=== PATIENT | male | born 1975 | race Caucasian/White ===

== ENCOUNTER 2021-02-25 08:24 | Emergency (ER) | payer OTHER ==
--- NOTE | 2021-02-25 08:55 | ER ---
Nurse's Notes [facility] Name: Sean Foote Age: 46 yrs Sex: Male : 1975 Arrival Date: 02/25/2021 Time: 08:31 Bed 9 Private MD: Diagnosis: Unspecified otitis externa, right ear Presentation: 02/25 08:41 Chief complaint: Patient states: Right ear pain x5 days, prescribed Amoxicillin x 4 jl7 days, drops x 1 day, severe pain continues with swelling noted to ear. Coronavirus screen: At this time, the client does not indicate any symptoms associated with coronavirus-19. Ebola Screen: No symptoms or risks identified at this time. Initial Sepsis Screen: Does the patient meet any 2 criteria? No. Patient's initial sepsis screen is negative. Does the patient have a suspected source of infection? No. Patient's initial sepsis screen is negative. Risk Assessment: Do you want to hurt yourself or someone else? Patient reports no desire to harm self or others. Onset of symptoms was February 21, 2021. 08:41 Method Of Arrival: Ambulatory jl7 08:41 Acuity: MIGUEL 4 jl7 Triage Assessment: 08:44 General: Appears in no apparent distress. uncomfortable, Behavior is calm, cooperative, jl7 appropriate for age. Pain: Complains of pain in right ear. EENT: Tympanic membrane not visualized right ear Ear canal swelling noted. Neuro: Level of Consciousness is awake, alert, obeys commands, Oriented to person, place, time, situation. Cardiovascular: Patient's skin is warm and dry. Respiratory: Airway is patent Respiratory effort is even, unlabored, Respiratory pattern is regular, symmetrical. Derm: Skin is pink, warm \T\ dry. Historical: - Allergies: 08:44 No Known Allergies; jl7 - PMHx: 08:44 Hypertensive disorder; jl7 - PSHx: 08:44 Appendectomy; Cholecystectomy; jl7 - Immunization history:: Adult Immunizations unknown. - Social history:: Smoking status: unknown. Screenin:45 Abuse screen: Denies threats or abuse. Denies injuries from another. Nutritional jl7 screening: No deficits noted. Tuberculosis screening: No symptoms or risk factors identified. Fall Risk None identified. Assessment: 08:45 General: see triage. jl7 Vital Signs: 08:41 BP 134 / 88; Pulse 92; Resp 17; Temp 97.4; Pulse Ox 98% on R/A; Weight 90.72 kg; Height jl7 5 ft. 10 in. (177.80 cm); Pain 9/10; 08:41 Body Mass Index 28.70 (90.72 kg, 177.80 cm) jl7 ED Course: 08:31 Patient arrived in ED. mr 08:34 Aydin Fisher, RN is Primary Nurse. jl7 08:36 Cristobal Crawford NP is PHCP. pm1 08:36 Gunjan Hoover MD is Attending Physician. pm1 08:44 Triage completed. jl7 08:44 Arm band placed on right wrist. jl7 08:45 Patient has correct armband on for positive identification. Bed in low position. Call jl7 light in reach. Side rails up X 1. 08:54 Maria D Martinez MD is Referral Physician. pm1 09:06 No provider procedures requiring assistance completed. Patient did not have IV access ld1 during this emergency room visit. Administered Medications: No medications were administered Outcome: 08:54 Discharge ordered by . pm1 09:07 Discharged to home ambulatory. ld1 09:07 Condition: stable 09:07 Discharge instructions given to patient, Instructed on discharge instructions, follow up and referral plans. medication usage, Demonstrated understanding of instructions, follow-up care, medications, Prescriptions given X 2. 09:07 Patient left the ED. ld1 Signatures: Rina Hitchcock mr Cristobal Crawford, EDMUND [employer] pm1 Aydin Fisher RN RN jl7 Krys Chin RN RN ld1
--- NOTE | 2021-02-25 08:55 | EDPHYS ---
Physician Documentation [facility] Name: Sean Foote Age: 46 yrs Sex: Male : 1975 Arrival Date: 02/25/2021 Time: 08:31 Bed 9 Private MD: ED Physician Gunjan Hoover HPI: 02/25 08:52 This 46 yrs old Male presents to ER via Ambulatory with complaints of Ear pm1 Pain. 08:52 The patient presents with pain, that is acute. The complaints affect the right ear. pm1 Onset: The symptoms/episode began/occurred 5 day(s) ago. Modifying factors: the symptoms are aggravated by 2 days prior to onset of ear pain, patient reports getting water from shower stuck in his right ear. Associated signs and symptoms: Pertinent negatives: fever. Severity of symptoms: in the emergency department the symptoms are worse. The patient has experienced similar episodes in the past, a few times, as a child. The patient has been recently seen at an urgent care, for similar complaints, Diagnosed with otitis media 4 days ago and prescribed Augmentin and then followed up with them yesterday and prescribed Ciprodex drops. Reports provider was unable to visualize TM yesterday. No ear wick given with ciprodex. Historical: - Allergies: 08:44 No Known Allergies; jl7 - PMHx: 08:44 Hypertensive disorder; jl7 - PSHx: 08:44 Appendectomy; Cholecystectomy; jl7 - Immunization history:: Adult Immunizations unknown. - Social history:: Smoking status: unknown. ROS: 08:52 Constitutional: Negative for fever, chills, and weight loss. pm1 08:52 Cardiovascular: Negative for chest pain, palpitations, and edema, Respiratory: Negative for shortness of breath, cough, wheezing, and pleuritic chest pain, Skin: Negative for injury, rash, and discoloration, Neuro: Negative for headache, weakness, numbness, tingling, and seizure. 08:52 ENT: Positive for ear pain, Negative for sore throat. 08:52 All other systems are negative. Exam: 08:52 Constitutional: This is a well developed, well nourished patient who is awake, alert, pm1 and in no acute distress. Head/Face: Normocephalic, atraumatic. 08:52 Skin: Warm, dry with normal turgor. Normal color with no rashes, no lesions, and no evidence of cellulitis. MS/ Extremity: Pulses equal, no cyanosis. Neurovascular intact. Full, normal range of motion. 08:52 Eyes: Exam is negative for acute changes, Extraocular movements: no acute changes, Sclera: no acute changes, icterus, is not appreciated. 08:52 ENT: External ear(s): swelling, that is minimal, of the pinna of right ear and right ear canal, Ear canal(s): swelling, that is moderate, of the right canal, TM's: not visable, swelling from right otitis externa, no discharge present. 08:52 Cardiovascular: Exam negative for acute changes, Rate: normal, Rhythm: regular, Pulses: no pulse deficits are appreciated. 08:52 Respiratory: Exam negative for acute changes, respiratory distress, shortness of breath. 08:52 Neuro: Exam negative for acute changes, Orientation: is normal, Mentation: is normal, Motor: is normal, moves all fours, Gait: is steady, at a normal pace, without difficulty. Vital Signs: 08:41 BP 134 / 88; Pulse 92; Resp 17; Temp 97.4; Pulse Ox 98% on R/A; Weight 90.72 kg; Height jl7 5 ft. 10 in. (177.80 cm); Pain 9/10; 08:41 Body Mass Index 28.70 (90.72 kg, 177.80 cm) jl7 MDM: 08:37 Patient medically screened. pm1 08:52 ED course: Ear wick placed in right ear for right otitis externa. pm1 08:53 Data reviewed: vital signs. Data interpreted: Pulse oximetry: on room air is 98 %. pm1 Interpretation: normal. 08:53 Counseling: I had a detailed discussion with the patient and/or guardian regarding: the pm1 historical points, exam findings, and any diagnostic results supporting the discharge/admit diagnosis, the need for outpatient follow up, an ENT specialist, to return to the emergency department if symptoms worsen or persist or if there are any questions or concerns that arise at home. 09:06 ED course: PMPAware reviewed. pm1 Administered Medications: No medications were administered Disposition Summary: 02/25/21 08:54 Discharge Ordered Location: Home pm1 Problem: new pm1 Symptoms: have improved pm1 Condition: Stable pm1 Diagnosis - Unspecified otitis externa, right ear pm1 Followup: pm1 - With: Emergency Department - When: As needed - Reason: Worsening of condition Followup: pm1 - With: Maria D Martinez MD - When: 2 - 3 days - Reason: Recheck today's complaints, Continuance of care, Re-evaluation by your physician Discharge Instructions: - Discharge Summary Sheet pm1 - Ear Drops, Adult pm1 - Otitis Externa pm1 Forms: - Medication Reconciliation Form pm1 - Thank You Letter pm1 - Antibiotic Education pm1 - Prescription Opioid Use pm1 Prescriptions: - Neomycin / polymyxin b / hydrocortisone otic suspension - apply 4 drop by OTIC route every 6 hours for 10 days To right ear; 10 pm1 milliliter; Refills: 0, Product Selection Permitted - acetaminophen-codeine 300-15 mg Oral tablet - take 2 tablet by ORAL route every 6 hours As needed as needed; 20 tablet; pm1 Refills: 0, Product Selection Permitted Addendum: 03/06/2021 05:23 Co-signature as Attending Physician, Gunjan Hoover MD PA/[employer]'s history reviewed, m a2 patient interviewed, and examined. I agree with assessment and care plan and confirm the diagnosis (es) above. Signatures: Cristobal Crawford NP [employer] pm1 Aydin Fisher RN RN jl7 Gunjan Hoover MD MD ma2
[2021-02-25 09:21] VITALS: BP 134/88; TEMP 97.4; O2SAT 98
--- OUTSIDE RECORDS SUMMARY | 2021-03-04 14:04 | XMS REPORT | Continuity of Care Document ---
:1975 Author Organization [facility] t Address [address] [place] [address] Dr. Sutherland [address] [place] [id number] Care Team Providers Name Role Phone Unavailable Unavailable Unavailable Problems This patient has no known problems. Allergies, Adverse Reactions, Alerts This patient has no known allergies or adverse reactions. Medications This patient has no known medications. Procedures This patient has no known procedures. Results This patient has no known results.
== END 2021-02-25 09:07 | disposition home or self-care (01) ==
LOC: ER 08:24
DX: H60.91 Unspecified otitis externa, right ear (principal); I10 Essential (primary) hypertension
CPT/HCPCS: 99282

== ENCOUNTER 2024-11-28 10:46 | Emergency (ER) | payer OTHER ==
--- OUTSIDE RECORDS SUMMARY | 2024-11-28 10:49 | XMS REPORT | Continuity of Care Document ---
Author Name Unknown Address [address] [place] [address] Organization [facility] Address [address] [place] [address] Care Team Providers Care Standard Machine Stitcher Name Role Phone Pcp, Patient Does Not Have A Primary Care Physic alvaro System, Amb Referring Provider Not In Attending Clinician Unavailable Tara Attending Clinician Unavail able Sravan Multani Attending Clinician Unavailab le Tara Admitting Clinician Unavail able KNOW, DOES_NOT Admitting Clinician Unavailable Payers Payer Name Policy Type Policy Number Effective Date Expirati on Date Source [employer] - CHOICE (POS II) [id number] 2004 00:00:00 Problems Condition Name Condition Details Condition Category Status Onset Date Resolution Date Last Treatment Date Treating Clinician Comments Source Lumbar radiculopa thy Lumbar Radiculopa thy Problem Active 05-31 00:00: 00 [facility] Allergies, Adverse Reactions, Alerts Allergy Name Allergy Type Status Severity Reaction(s) Onset Date Inactive Date Treating Clinician Comments Source No Known Allergie s DA Active U 05-31 00:00: 00 [facility] Social History Social Habit Start Date Stop Date Quantity Comments Source Sexual orientation U [facility] Sex assigned at 1975 00:00:00 1975 00:00:00 [facility] Smoking Status Start Date Stop Date Source Tobacco smoking consumption unknown [facility] Former Smoker [facility] Medications Ordered Medication Name Filled Medication Name Start Date Stop Date Current Medication? Ordering Clinician Indication Dosage Frequency Signature (SIG) Comments Components Source methylpredn isolone 4 mg tablets in a dose pack TAKE 6 TABLETS ON DAY 1 DIRECTED ON PACKAGE AND DECREASE BY 1 TAB EACH DAY FOR A TOTAL OF 6 DAYS methylpredn isolone 4 mg tablets in a dose pack TAKE 6 TABLETS ON DAY 1 DIRECTED ON PACKAGE AND DECREASE BY 1 TAB EACH DAY FOR A TOTAL OF 6 DAYS No methylpred nisolone 4 mg tablets in a dose pack TAKE 6 TABLETS ON DAY 1 DIRECTED ON PACKAGE AND DECREASE BY 1 TAB EACH DAY FOR A TOTAL OF 6 DAYS [facility] olmesartan 20 mg-hydrochl orothiazide 12.5 mg tablet TAKE 1 TABLET BY MOUTH EVERY DAY olmesartan 20 mg-hydrochl orothiazide 12.5 mg tablet TAKE 1 TABLET BY MOUTH EVERY DAY No olmesartan 20 mg-hydroch lorothiazi de 12.5 mg tablet TAKE 1 TABLET BY MOUTH EVERY DAY [facility] prednisone 20 mg tablet prednisone 20 mg tablet No prednisone 20 mg tablet [facility] Medrol (Don) 4 mg tablets in a dose pack Take 1 dose pk by oral route as directed. Medrol (Don) 4 mg tablets in a dose pack Take 1 dose pk by oral route as directed. No 1dose pk(s) Medrol (Don) 4 mg tablets in a dose pack Take 1 dose pk by oral route as directed. [facility] olmesartan 20 mg-hydrochl orothiazide 12.5 mg tablet TAKE 1 TABLET BY MOUTH EVERY DAY olmesartan 20 mg-hydrochl orothiazide 12.5 mg tablet TAKE 1 TABLET BY MOUTH EVERY DAY No olmesartan 20 mg-hydroch lorothiazi de 12.5 mg tablet TAKE 1 TABLET BY MOUTH EVERY DAY [facility] prednisone 20 mg tablet prednisone 20 mg tablet No prednisone 20 mg tablet [facility] Vital Signs Vital Name Observation Time Observation Value Comments S ource Height 2022-05-31 00:00:00 70 [in_i] [facility] BMI (Body Mass Index) 2022-05-31 00:00:00 30.1 kg/m2 [facility] Body Weight 2022-05-31 00:00:00 210 [lb_av] A[facility] Height 2022-05-24 00:00:00 70 [in_i] [facility] BMI (Body Mass Index) 2022-05-24 00:00:00 30.1 kg/m2 [facility] Body Weight 2022-05-24 00:00:00 210 [lb_av] [facility] Procedures Procedure Date / Time Performed Performing Clinician Source SPECT, lumbar spine 2022-05-31 00:00:00 [facility] RADEX SPI LUMBOSAC MINIMUM 4 VIEWS 2022-05-24 00:00:00 [facility] MRI, lumbar spine, w/wo contrast 2022-05-24 00:00:00 [facility] Ankle Surgery [facility] Appendectomy [facility] Back Surgery [facility] Gallbladder Surgery [facility] Plan of Care Planned Activity Planned Date Details Comments Source Instructions [facility] Encounters Start Date/Time End Date/Time Encounter Type Admission Type Attending Clinicians Care Facility Care Department Encounter ID Source 2024-10-28 00:00:00 2024-10-28 08:45:55 Letter (Out) System, Amb Referring Provider Not In [facility] [id number] [facility] 2022-05-31 09:09:00 2022-05-31 09:09:00 Outpatient Sravan Salguero [facility] [id number] [facility] 2022-05-31 00:00:00 2022-05-31 00:00:00 Sravan Multani MD: [address] [place] [address] , Ph. [phone] [place] [facility] [place] [facility] [id number] [facility] 2022-05-24 00:00:00 2022-05-24 00:00:00 Sravan Multani MD: [address] [place] [address] , Ph. [phone] [facility] [place] [facility] [place] [facility] [address] [id number] [facility] Results Test Description Test Time Test Comments Results Resul t Comments Source - MRI L-SPINE W WO CON 2022-05-31 13:32:00 [facility] 1975 Sex: M Patient Name: SUMMER FOOTE Unit No: [id number] EXAMS: CPT CODE: [id number] MRI L-SPINE W WO CON [id number] DIAGNOSIS: 1. At L1-2 there is no evidence for disc bulge or herniation, bony canal or foraminal stenosis. 2. At L2-3 there is no evidence for disc bulge or herniation, bony canal or foraminal stenosis. 3. At L3-4 there is a slight retrolisthesis and disc bulging with mild left and mild to moderate right foraminal narrowing. Mild canal stenosis is seen with facet degeneration. 4. At L4-5 there is mild retrolisthesis and endplate spur formation with disc bulging which is lateralizing 3 mm into the right neural foramen. Moderate to marked bilateral foraminal narrowing is present right worse than left. A left-sided laminectomy is seen with decompression of the canal. Facet degeneration is present. 5. At L5-S1 there is a grade 1 retrolisthesis. A 5 mm right posterior lateral disc herniation with caudal extrusion is noted and there is also a 6 mm extruded disc fragment posterior to the herniation. There is compression and displacement of the right S1 nerve root and to a lesser degree the thecal sac. Facet degeneration is present without canal stenosis. Marked left and moderate right foraminal narrowing is seen with impingement on the left L5 multiple areas of focal fatty marrow infiltration are seen in the sacrum and posterior iliac wings. 6. At T12-L1 there is 4 mm of right paracentral, posterior lateral and foraminal disc herniation with moderate to marked narrowing of the right neural foramen and possible impingement on the cauda equina. If further evaluation is clinically indicated MRI of the thoracic spine is recommended. COMMENT: COMPARISON: No prior exams available. Scans were performed in the sagittal and axial planes utilizing T1, T2 and inversion recovery images precontrast and T1-weighted images postcontrast. Endplate and disc degeneration is seen from L3 to S1. Postsurgical changes as noted. Abnormal enhancement is seen in annular fissuring from L3 to S1. There is a scoliosis convex left. Disc configurations are as described. Spondylitic changes are as noted. The conus is in the expected location. The description these findings assumes a normal count of 5 lumbar type vertebra. at 1332 Reported and signed by: Margarito Peraza MD CC: Technologist: Romeo Luque(R) Transcribed D/ (1332) [facility] NAME: SUMMER FOOTE [id number] PHYS: JOSEFINA - Sravan Multani : 1975 AGE: 47 SEX: M [place], [place] [address] LOC: Y.RAD PHONE #: [phone] EXAM DATE: 05/31/2022 STATUS: REG CLI FAX #: [phone] RAD #: D/C DT PAGE 1 Signed Report Patient Name: SUMMER FOOTE Unit No: [id number] EXAMS: CPT CODE: [id number] MRI L-SPINE W WO CON [id number] (Continued) Orig Print D/T: S: 05/31/2022 (1335) [facility] NAME: SUMMER FOOTE [address] PHYS: [email or web address] - Sravan Multani : 1975 AGE: 47 SEX: M [place], [place] [address] LOC: WAYNE PHONE #: [phone] EXAM DATE: 05/31/2022 STATUS: SOTO FLORES FAX #: [phone] RAD #: D/C DT PAGE 2 Signed Report
--- NOTE | 2024-11-28 11:35 | ER ---
Nurse's Notes [facility] Name: Sean Foote Age: 49 yrs Sex: Male : 1975 Arrival Date: 11/28/2024 Time: 10:46 Bed 12 Private MD: Diagnosis: Displaced fracture of base of fifth metacarpal bone, right hand Presentation: 11/28 10:54 Chief complaint: Patient states: tried to catch a foul ball, deformity to right pinky jl7 finger with laceration. 10:54 Method Of Arrival: Ambulatory jl7 10:54 Coronavirus screen: At this time, the client does not indicate any symptoms associated jl7 with coronavirus-19. Ebola Screen: No symptoms or risks identified at this time. Initial Sepsis Screen: Does the patient meet any 2 criteria? No. Patient's initial sepsis screen is negative. Does the patient have a suspected source of infection? No. Patient's initial sepsis screen is negative. Risk Assessment: Do you want to hurt yourself or someone else? Patient reports no desire to harm self or others. Onset of symptoms was November 28, 2024. 10:54 Acuity: MIGUEL 4 jl7 Triage Assessment: 11:17 General: Appears in no apparent distress. uncomfortable, Behavior is calm, cooperative, jl7 appropriate for age. Pain: Complains of pain in right hand Pain currently is 10 out of 10 on a pain scale. Musculoskeletal: Bony deformity noted of right little finger. Injury Description: Laceration sustained to right little finger. Historical: - Allergies: 11:17 No Known Allergies; jl7 - PMHx: 11:17 Hypertensive disorder; jl7 - PSHx: 11:17 Appendectomy; Cholecystectomy; jl7 - Immunization history:: Adult Immunizations not up to date. - Infectious Disease History:: Denies. - Social history:: Smoking status: Patient denies any tobacco usage or history of. Screenin:[address] [facility] ED Fall Risk Assessment (Adult) History of falling in the last 3 months, jl7 including since admission No falls in past 3 months (0 pts) Confusion or Disorientation No (0 pts) Intoxicated or Sedated No (0 pts) Impaired Gait No (0 pts) Mobility Assist Device Used No (0 pt) Altered Elimination No (0 pt) Score/Fall Risk Level 0 - 2 = Low Risk Oriented to surroundings, Maintained a safe environment. Abuse screen: Denies threats or abuse. Denies injuries from another. Nutritional screening: No deficits noted. Tuberculosis screening: No symptoms or risk factors identified. Assessment: 10:54 General: Appears in no apparent distress. uncomfortable, Behavior is cooperative, jl7 appropriate for age, anxious. Pain: Complains of pain in right little finger Pain currently is 10 out of 10 on a pain scale. Neuro: Servin Agitation-Sedation Scale (RASS): +1 Restless Level of Consciousness is awake, alert, obeys commands, Oriented to person, place, time, situation. Cardiovascular: Patient's skin is warm and dry. Respiratory: Airway is patent Respiratory effort is even, unlabored, Respiratory pattern is regular, symmetrical. Derm: Skin is pink, warm \T\ dry. Musculoskeletal: Bony deformity noted of right little finger. Injury Description: Laceration sustained to right little finger is 0.5 to 2.5 cm long. Vital Signs: 10:54 BP 130 / 90; Pulse 110; Resp 17; Temp 97; Pulse Ox 97% ; Pain 10/10; jl7 11:51 Weight 95.25 kg; Height 5 ft. 10 in. ; jl7 11:51 BP 137 / 86; Pulse 101; Resp 15; Pulse Ox 96% ; Pain 2/10; kb4 15:07 BP 124 / 86; Pulse 79; Resp 15; Pulse Ox 100% ; jl7 11:51 Body Mass Index 30.13 (95.25 kg, 177.8 cm) jl7 10:54 Pain Scale: Adult jl7 11:51 Pain Scale: Adult kb4 ED Course: 10:49 Patient arrived in ED. cj3 10:58 Rodolfo Mancia FNP-C is PHCP. dr5 10:58 Sherly Malagon is Attending Physician. dr5 11:12 Aydin Fisher, [place] is Primary Nurse. jl7 11:16 Triage completed. jl7 11:17 Hand Right 3 View XRAY In Process Unspecified. EDMS 11:17 Arm band placed on right wrist. jl7 11:40 Patient has correct armband on for positive identification. Provided Education on: jl7 transfer. 11:41 Romulo tape right hand. Wound care: to laceration located on right hand was cleaned with jl7 Hibiclens, Patient tolerated well. 11:47 Inserted saline lock: 20 gauge in left upper arm, using aseptic technique. Blood kb4 collected. Flushed with 10 mL NS. 12:29 1229 called [facility] for transfer talked to Meena 1244 Dr. Terrell Zarate doc sp to doc to follow out pt in office. 13:08 1308 CALL [facility] FOR TRANSFER DR. TUCKER ZARATE WANTS PT TO sp FOLLOW UP IN OFFICE ON SATURDAY [phone]. 14:45 Orthoglass splint: Ulnar gutter/Boxer splint applied on right forearm. jl7 15:16 No provider procedures requiring assistance completed. IV discontinued, intact, jl7 bleeding controlled, No redness/swelling at site. Pressure dressing applied. Administered Medications: 10:50 Drug: Lidocaine Infiltration (1 %) 20 ml 20 ml Infiltration once; to bedside {Note: jl7 administered by ERP.} Volume: 20 ml; Route: Infiltration; 11:57 Drug: Boostrix Tdap IM 0.5 ml IM once; as a single dose Route: IM; Site: left deltoid; jl7 15:06 Follow up: Response: No adverse reaction jl7 11:57 Drug: ceFAZolin IVPB 2 grams IVPB once over 30 mins; (mix in 100 mL NS) Route: IVPB; jl7 Infused Over: 30 mins; Site: left upper arm; 12:30 Follow up: Response: No adverse reaction; IV Status: Completed infusion jl7 Medication: 10:54 Vaccine Information Statement (VIS) provided today. Questions and/or concerns jl7 addressed. VIS edition date: November 25, 2020. Outcome: 11:34 ER care complete, transfer ordered by . dr5 14:40 Discharge ordered by . dr5 15:15 Discharged to home ambulatory, with family, jl7 15:15 Condition: stable 15:15 Discharge instructions given to patient, family, Instructed on discharge instructions, follow up and referral plans. medication usage, Demonstrated understanding of instructions, follow-up care, medications, splint care, Prescriptions given X 3, 15:16 Patient left the ED. jl7 Signatures: Dispatcher [employer] EDMS Yolanda Su Jahala, RN RN jl7 Rodolfo Mancia, TREASURY CONSULTANT-C TREASURY CONSULTANT-Cdr5 Kady Mckeon RN RN kb4 Jaqui Bui cj3 Corrections: (The following items were deleted from the chart) 14:44 13:26 1229 called [facility] for transfer talked to Meena 1244 Dr. Terrell Zarate doc to doc to follow out pt in office. sp
--- NOTE | 2024-11-28 11:35 | EDPHYS ---
Physician Documentation [facility] Name: Sean Foote Age: 49 yrs Sex: Male : 1975 Arrival Date: 11/28/2024 Time: 10:46 Bed 12 Private MD: ED Physician Sherly Malagon HPI: 11/28 11:34 This 49 yrs old Male presents to ER via Ambulatory with complaints of Finger dr5 Injury - RT. 11:34 Patient is a 49-year-old male with history of hypertension coming in with pain to right dr5 fifth digit after getting hit by a softball in between 4th and 5th digits. Patient presents with laceration in between 4th and 5th digits, obvious dislocation to right fifth digit with finger at 90 degrees laterally and numbness and tingling to the right finger. Patient is right-hand dominant. Historical: - Allergies: 11:17 No Known Allergies; jl7 - PMHx: 11:17 Hypertensive disorder; jl7 - PSHx: 11:17 Appendectomy; Cholecystectomy; jl7 - Immunization history:: Adult Immunizations not up to date. - Infectious Disease History:: Denies. - Social history:: Smoking status: Patient denies any tobacco usage or history of. ROS: 11:34 Constitutional: as per hpi dr5 Exam: 11:31 Constitutional: This is a well developed, well nourished patient who is awake, alert, dr5 and in no acute distress. Head/Face: Normocephalic, atraumatic. Eyes: Pupils equal round and reactive to light, extra-ocular motions intact. Lids and lashes normal. Conjunctiva and sclera are non-icteric and not injected. Cornea within normal limits. Periorbital areas with no swelling, redness, or edema. Neck: Trachea midline, no thyromegaly or masses palpated, and no cervical lymphadenopathy. Supple, full range of motion without nuchal rigidity, or vertebral point tenderness. No Meningismus. Chest/axilla: Normal chest wall appearance and motion. Nontender with no deformity. No lesions are appreciated. Cardiovascular: Regular rate and rhythm with a normal S1 and S2. Normal PMI, no JVD. No pulse deficits. Respiratory: Lungs have equal breath sounds bilaterally, clear to auscultation. No rales, rhonchi or wheezes noted. No increased work of breathing, no retractions or nasal flaring. Back: No spinal tenderness. No costovertebral tenderness. Full range of motion. Skin: Warm, dry with normal turgor. Normal color with no rashes, no lesions, and no evidence of cellulitis. Laceration noted in between 4th and 5th digit. Neuro: Awake and alert, GCS 15, oriented to person, place, time, and situation. Cranial nerves II-XII grossly intact. Motor strength 5/5 in all extremities. Sensory grossly intact. Cerebellar exam normal. Normal gait. 11:31 Musculoskeletal/extremity: Extremities: grossly normal except: noted in the dorsal aspect of proximal phalanx of right little finger: swelling, tenderness, ROM: the patient is contracted, Circulation is intact in all extremities. Sensation intact. Tendon exam: postive for partial tendon laceration right little finger, Vital Signs: 10:54 BP 130 / 90; Pulse 110; Resp 17; Temp 97; Pulse Ox 97% ; Pain 10/10; jl7 11:51 Weight 95.25 kg; Height 5 ft. 10 in. ; jl7 11:51 BP 137 / 86; Pulse 101; Resp 15; Pulse Ox 96% ; Pain 2/10; kb4 15:07 BP 124 / 86; Pulse 79; Resp 15; Pulse Ox 100% ; jl7 11:51 Body Mass Index 30.13 (95.25 kg, 177.8 cm) jl7 10:54 Pain Scale: Adult jl7 11:51 Pain Scale: Adult kb4 Procedures: 17:28 Reduction: of the right little finger, using manipulation, Immobilized with Sugar Tong dr5 Splint. Patient tolerated well. Nerve block: (digital) of dorsal aspect of proximal phalanx of right little finger Medication: Lidocaine 1% without epinephrine Amount: 2 mls were injected, Effect: the patient's symptoms are improved, moderately, Set up for procedure. Performed by Rodolfo FRANK Patient tolerated well. Laceration: 17:28 Wound Repair of 3cm ( 1.2in ) subcutaneous laceration to in between 4th and 5th digit. dr5 Linear shaped.. Distal neuro/vascular/tendon intact. Anesthesia: Local anesthetic administered with 3 mls of 1% lidocaine, Regional Block with 3 mls of 1% lidocaine. Wound prep: Moderate cleansing by ca. Skin closed with 3 4-0 Prolene using simple sutures and sterile technique. Dressed with non-adherent dressing. Patient tolerated well. MDM: 10:59 Medical Screening Exam initiated [facility] 11:34 ED course: Upon patient's arrival, I immediately grabbed medication and did digital dr5 block on right fifth digit with improved pain. Patient reported numbness and tingling and inability to feel finger prior to arrival. I performed reduction of fifth digit with better alignment of finger. Will give patient tetanus injection and IV antibiotics for open fracture. Will transfer downtown to [facility] due to not having hand surgeon at [facility] with concerns for open fracture and tendon injury. Will transfer patient with finger splint applied and leonora taped to fourth digit.. 17:20 Management of patient was discussed with the following: Remnants Cutter: [facility]jada [facility] Recommended suture repair, sugar-tong splint, Ancef IV, and follow-up with antibiotics to go home. He gave me phone number to follow-up with him and I gave that to patient and his ... 17:28 Differential diagnosis: Fracture, Dislocation, Laceration. Data reviewed: vital signs, [facility] nurses notes. 18:06 I considered the following discharge prescriptions or medication management in the [facility] emergency department I discussed and recommended Over The Counter medications, Medications were administered in the Emergency Department. See MAR. Independent interpretation of the following test(s) in the Emergency Department X-Ray: My interpretation is Independent rotation of x-ray revealed fracture to right fifth digit. Historians other than the Patient: Spouse/Significant Other: . Care significantly affected by the following chronic conditions: Hypertension. Care significantly affected by the following Social Determinants of Health: Poor access to healthcare and/or lack of insurance, Poor access to transportation, Problems related to employment. Counseling: I had a detailed discussion with the patient and/or guardian regarding the historical points, exam findings, and any diagnostic results supporting the discharge/admit diagnosis, the presence of at least one elevated blood pressure reading (>120/80) during this emergency department visit, radiology results, the need for outpatient follow up, for definitive care, a hand specialist, to return to the emergency department if symptoms worsen or persist or if there are any questions or concerns that arise at home. Medication response: Lidocaine. Response to treatment: the patient's symptoms have markedly improved after treatment. Special discussion: I have referred the patient to see his PCP for further evaluation of high blood pressure. I discussed with the patient/guardian in detail that at this point there is no indication for admission to the hospital. It is understood, however, that if the symptoms persist or worsen the patient needs to return immediately for re-evaluation. Based on the history and exam findings, there is no indication for further emergent testing or inpatient evaluation. I discussed with the patient/guardian the need to see the hand specialist for further evaluation of the symptoms. ED course: Gave patient both numbers to hand to follow-up with tomorrow. Antibiotics given. Patient is feeling better after ulnar gutter and laceration repair. Strict ER precautions given. All questions answered.. 11/28 10:59 Order name: Hand Right 3 View XRAY; Complete Time: 12:29 dr5 11/28 10:59 Order name: Dressing - Wound; Complete Time: 11:41 dr5 11/28 10:59 Order name: Gloves, Sterile; Complete Time: 11:12 dr5 11/28 10:59 Order name: Prolene, Sutures; Complete Time: 11: dr5 11/28 10:59 Order name: Setup Suture Tray; Complete Time: 11:25 dr5 11/28 14:36 Order name: Ulnar Gutter splint; Complete Time: 15:06 dr5 Administered Medications: 10:50 Drug: Lidocaine Infiltration (1 %) 20 ml 20 ml Infiltration once; to bedside {Note: jl7 administered by ERP.} Volume: 20 ml; Route: Infiltration; 11:57 Drug: Boostrix Tdap IM 0.5 ml IM once; as a single dose Route: IM; Site: left deltoid; jl7 15:06 Follow up: Response: No adverse reaction jl7 11:57 Drug: ceFAZolin IVPB 2 grams IVPB once over 30 mins; (mix in 100 mL NS) Route: IVPB; jl7 Infused Over: 30 mins; Site: left upper arm; 12:30 Follow up: Response: No adverse reaction; IV Status: Completed infusion jl7 Disposition: 17:06 Co-signature as Attending Physician, Sherly Malagon I agree with the assessment ci and plan of care. I reviewed the patient's care provided by the Advanced Practice Provider and agree with the diagnosis and treatment plan. Disposition Summary: 11/28/24 14:40 Discharge Ordered Notes: Location: Home dr5 Condition: Stable(11/28/24 14:40) dr5 Diagnosis - Displaced fracture of base of fifth metacarpal bone, right hand dr5 Followup: dr5 - With: Emergency Department - When: As needed - Reason: Worsening of condition Followup: dr5 - With: Private Physician - When: 1 - 2 days - Reason: Recheck today's complaints, Continuance of care, Re-evaluation by your physician Discharge Instructions: - Discharge Summary Sheet dr5 - Metacarpal Fracture dr5 Forms: - Medication Reconciliation Form dr5 - Prescription Opioid Use dr5 - Patient Portal Instructions dr5 - Leadership Thank You Letter dr5 Prescriptions: - Cephalexin 500 mg Oral Capsule - take 1 capsule ORAL route every 12 hours for 10 days; 20 capsule; Refills: 0, dr5 Product Selection Permitted - Tramadol 50 mg Oral Tablet - take 1 tablet ORAL route every 8 hours as needed; 12 tablet; Refills: 0, dr5 Product Selection Permitted - Tylenol-Codeine #3 300mg-30mg Oral tablet - take 2 tablets ORAL route every 6 hours As needed; 20 tablet; Refills: 0, dr5 Product Selection Permitted Signatures: Dispatcher [employer] Aydin Vallejo RN RN jl7 IheonunekwuSherly Dustin, GLASS CUTTING MACHINE OPERATOR-C GLASS CUTTING MACHINE OPERATOR-Cdr5 Corrections: (The following items were deleted from the chart) 13:13 11:34 [place] dr5 dr5 13:13 11:34 [facility] dr5 dr5 13:13 11:34 Higher level of care dr5 dr5 13:13 11:34 Serious dr5 dr5 13:13 11:34 new dr5 dr5 13:13 11:34 are unchanged dr5 dr5 13:13 11:34 Other fracture of fifth metacarpal bone, right hand, initial encounter for open dr5 fracture dr5 13:13 11:34 Dislocation of metacarpal (bone), proximal end of right hand, initial encounter dr5 dr5 17:24 17:20 Management of patient was discussed with the following: Remnants Cutter: Dr. Tejada . dr5 dr5
[2024-11-28] MEDS ORDERED: TDAP (DIPHTH,PERTUSS(ACELL),TET VAC) 0.5 ML VIAL IMVAC ONE (11:45)
[2024-11-28] MEDS ORDERED: NA CHLORIDE 0.9% 100 ML ONE (11:45)
[2024-11-28] MEDS ORDERED: CEFAZOLIN SODIUM 2 GM/VIAL ONE (11:46)
--- NOTE | 2024-11-28 11:52 | RAD REPORT ---
EXAM: XR Hand Right 3 View HISTORY: [facility] MAIN Swelling;Pain Bed Name: 12 COMPARISON: None TECHNIQUE: 3 radiographic views of the RIGHT hand submitted. FINDINGS: Mildly impacted volar angulated fracture at the base of the fifth digit proximal phalanx. Surrounding soft tissue swelling. No significant degenerative changes. No other focal suspicious osseous lesions. IMPRESSION: Fracture at the base of the fifth digit proximal phalanx with mild impaction and volar angulation.
[2024-11-28 15:43] VITALS: TEMP 97
[2024-11-28 15:44] VITALS: BP 124/86; O2SAT 100
== END 2024-11-28 15:16 | disposition home or self-care (01) ==
LOC: ER 10:46
DX: S62.316A Displaced fracture of base of fifth metacarpal bone, right hand, initial encounter for closed fracture (principal); W21.07XA Struck by softball, initial encounter; Z23 Encounter for immunization
CPT/HCPCS: 12002; 64450; 90715; 96365; 96372; 99285